=== PATIENT | female | born 1960 | race Caucasian/White ===

== ENCOUNTER → 2017-02-19 | Outpatient (CLI) | payer BC ==
[~2017-02-19] MED LIST: ALDACTONE50 MG PO; ATACAND16 MG PO; CARAFATE 1 GM TA1 G1 PO; CLARITIN10 MG PO; LEVOTHYROXIN0.175 MG PO; METHYLPHENIDATE27 MG PO; NITROGLYCERIN0.4 MG SL; PROTONIX40 M1 PO; REGLAN 10 MG TA10 MG PO; ROZEREM 8 MG TAB8 M1 PO; TENORMIN25 MG PO; TRAZODONE 150150 M1 PO; ZOLOFT100 MG PO
--- NOTE | ~2017-02-19 | CATHLAB ---
[facility] [place] [address] INVASIVE PROCEDURE REPORT Name: BRIGHT [place] Room #: [facility]#: [id number] Admission: 02/19/17 Attend Phys: Tae Major MD Discharge: Date of : 60 Date of Service: 02/19/17 0929 Report #: [id number] THIS REPORT FOR: //name// CC: Tae Avelar DATE OF SERVICE: 02/19/2017 Cardiac Catheterization Report INDICATIONS: Dyspnea, abnormal nuclear stress test. Full risks, benefits and alternatives of cardiac catheterization were explained to the patient. All questions were answered. Informed consent was obtained. Attempt to cannulating the right radial artery was unsuccessful. The right groin area was prepped and draped in a sterile manner. Lidocaine was given subcutaneously. A 4-[place] sheath was inserted into the right femoral artery via modified Seldinger technique. CORONARY ANATOMY: Left main is a moderate sized caliber vessel, with no flow-limiting lesions. The LAD is a moderate-sized caliber vessel, travelling down the anterior wall and wrapping around the apex. There were no flow-limiting lesions in the LAD. There is one diagonal artery, supplying multiple branches as it travels down the anterior lateral wall. There were no flow-limiting lesions in the first diagonal artery. The left circumflex artery is a moderate size caliber vessel, dominant as it supplies the distal PDA. There were no flow-limiting lesions in the left circumflex artery. The first obtuse marginal artery supplies 2 branches with no flow-limiting lesions. The RCA is a small, nondominant vessel. A left ventriculogram was performed revealing normal LV systolic function, ejection fraction of 60%. The LVEDP is 22 mmHg. There is no gradient across the outflow tract. IMPRESSION: 1. Angiographically normal coronary arteries. 2. Left dominant system. 3. Normal LV systolic function. 4. Recommend medical therapy. <ELECTRONICALLY SIGNED> By: Tae Major MD 02/20/17 0752 0929 [id number] Tae Major MD /nt
[2017-02-19 07:12] VITALS: BP 112/59
[2017-02-19 07:28] LABS: HEMATOCRIT 43.3 % (37.0-47.0); HEMOGLOBIN 14.2 gm/dL (12.0-15.0); MCH 28.8 pg (26.0-34.0); MCHC 32.7 g/dL (28.0-37.0); MCV 88.2 fL (80.0-100.0); RBC 4.92 mil/uL (4.20-5.00); RDW 13.7 % (10.5-14.5); WBC 9.1 thou/uL (4.0-11.0)
[2017-02-19 07:43] LABS: CALCIUM 8.9 mg/dL (8.5-10.1); CREATININE 1.1 mg/dL (0.6-1.3); POTASSIUM 3.7 mmol/L (3.5-5.1)
== END | disposition home or self-care (01) ==
LOC: CATH 06:54
PROVIDERS: Internal Medicine Cardiovascular Disease
DX: R06.00 Dyspnea, unspecified (principal); I10 Essential (primary) hypertension; K21.9 Gastro-esophageal reflux disease without esophagitis; E03.9 Hypothyroidism, unspecified; Z90.49 Acquired absence of other specified parts of digestive tract; Z87.891 Personal history of nicotine dependence; Z98.890 Other specified postprocedural states